=== PATIENT | female | born 1970 | race Caucasian/White ===

== ENCOUNTER → 2022-02-28 | Outpatient (CLI) | payer OTHER ==
--- NOTE | 2022-03-01 07:45 | CT ---
EXAMINATION TYPE: CT abdomen pelvis w con DATE OF EXAM: 02/28/2022 COMPARISON: None HISTORY: DVTRCLI OF LG INT W/O PERF CT DLP: 453.2 mGycm CONTRAST: CT scan of the abdomen and pelvis is performed with Oral Contrast and with IV Contrast, patient injec jyoti with 100ml mL of Isovue 300. FINDINGS: LUNG BASES-: No visible nodule. No infiltrate. LIVER/GB: Calcified gallstones identified. No space occupying hepatic lesion. Biliary tree is of n ormal caliber. PANCREAS: No inflammation. No distinct mass. SPLEEN: No splenic enlargement. No lesion seen. ADRENALS: No nodule. No thickening. KIDNEYS/BLADDER: No hydronephrosis. No nephrolithiasis. 4 cm simple cyst lower pole left kidney. Ur inary bladder grossly unremarkable. BOWEL: There is nonvisualization of the appendix. No inflammatory process identified. Sigmoid diverti culosis without diverticulitis. There is at least moderate fecal stasis. Normal bowel caliber. No i nflammation. GENITAL ORGANS: No gross abnormality. LYMPH NODES: No greater than 1cm abdominal or pelvic lymph nodes are appreciated. AORTA: No significant abnormality. OSSEOUS STRUCTURES: No significant abnormality is seen. OTHER: No significant additional abnormality is seen. IMPRESSION: 1. No acute inflammatory process identified. 2. There is at least moderate fecal stasis seen throughout the colon. 3. Sigmoid diverticulosis without diverticulitis. 4. Cholelithiasis.
== END | disposition home or self-care (01) ==
LOC: RADCTMAIN 18:12
PROVIDERS: ATTEND Surgery Plastic and Reconstructive Surgery
DX: K80.20 Calculus of gallbladder without cholecystitis without obstruction (principal); K57.30 Diverticulosis of large intestine without perforation or abscess without bleeding; K56.41 Fecal impaction
CPT/HCPCS: 74177; Q9967

== ENCOUNTER 2022-03-14 06:24 | Day surgery (SDC) | payer OTHER ==
[2022-03-12 12:07] VITALS: BMI 22.3
[~2022-03-14 06:24] MED LIST: LACTATED RINGERS 1,000 ML IV SCH; LIDOCAINE 1% (10MG/ML) FOR IV START INTRADERMA PRN
[2022-03-14 07:06] VITALS: RESP 16; TEMP 97
--- NOTE | 2022-03-14 07:36 | P.GSHP ---
History of Present Illness H&P Date: 03/14/22 CHIEF COMPLAINT: Colon screen HISTORY OF PRESENT ILLNESS: The patient is a 51-year-old female who presents for colon screen. Lower endoscopy was offered for further evaluation and management. PAST MEDICAL HISTORY: Please see list. PAST SURGICAL HISTORY: Please see list. MEDICATIONS: Please see list. ALLERGIES: Please see list. SOCIAL HISTORY: No illicit drug use FAMILY HISTORY: No reports of Crohn disease or ulcerative colitis. REVIEW OF ORGAN SYSTEMS: CONSTITUTIONAL: No reports of fevers or chills. PHYSICAL EXAM: VITAL SIGNS: Stable GENERAL: Well-developed pleasant in no acute distress. HEENT: No scleral icterus. Extraocular movements grossly intact. Moist buccal mucosa. NECK: Supple without lymphadenopathy. CHEST: Unlabored respirations. Equal bilateral excursions. CARDIOVASCULAR: Regular rate and rhythm. Distal 2+ pulses. ABDOMEN: Soft, nontender, nondistended. MUSCULOSKELETAL: No clubbing, cyanosis, or edema. ASSESSMENT: 1. Colon screen. PLAN: 1. Recommend proceeding with a lower endoscopy Past Medical History Past Medical History: No Reported History Additional Past Medical History / Comment(s): Left rectal pain X2 months. History of Any Multi-Drug Resistant Organisms: None Reported Past Surgical History: Appendectomy, Back Surgery, Bladder Surgery Additional Past Surgical History / Comment(s): Partial hysterectomy with bladder suspension, C6-C7 spinal fusion, hand surgery. Past Anesthesia/Blood Transfusion Reactions: No Reported Reaction Additional Past Anesthesia/Blood Transfusion Reaction / Comment(s): Had difficulty urinating for 2 weeks after partial hysterectomy, had to self cath for 2 weeks post-op. Past Psychological History: No Psychological Hx Reported Smoking Status: Former smoker Past Alcohol Use History: Rare Additional Past Alcohol Use History / Comment(s): Smoked in her 20's. Past Drug Use History: None Reported - Past Family History Mother Family Medical History: No Reported History Medications and Allergies Home Medications Medication Instructions Recorded Confirmed Type Dicyclomine [Bentyl] 20 mg PO BID 03/12/22 03/14/22 History Lactulose 30 ml PO DAILY 03/12/22 03/14/22 History Sennosides/Docusate Sodium [Senna 2 each PO DAILY 03/12/22 03/14/22 History Plus 8.6-50 mg Tablet] Allergies Allergy/AdvReac Type Severity Reaction Status Date / Time No Known Allergies Allergy Verified 03/14/22 06:54 Surgical - Exam Vital Signs Temp Pulse Resp BP Pulse Ox 97.0 F L 86 16 116/71 98 03/14/22 07:00 03/14/22 07:00 03/14/22 07:00 03/14/22 07:00 03/14/22 07:00
[2022-03-14] MEDS ORDERED: PROPOFOL 10 MG/ML 20 ML VIAL IV ONE (07:38)
--- NOTE | 2022-03-14 07:59 | P.PCN ---
Date of Procedure: 03/14/22 Description of Procedure: PREOPERATIVE DIAGNOSIS: Colonoscopy screening. POSTOPERATIVE DIAGNOSIS: Colonoscopy screening. Severe sigmoid diverticulosis OPERATION: Colonoscopy to the cecum, ileocecal valve and appendiceal orifice. SURGEON: Antonella Vaughn MD. ANESTHESIA: MAC. INDICATIONS: The patient is a 51-year-old female who presents for colonoscopy screening. Benefits and risks were described and informed consent was obtained. DESCRIPTION OF PROCEDURE: The patient had undergone Sutab prep. The patient had been brought into the operating room and laid in the left lateral decubitus position. After adequate intravenous sedation, the rectum was examined with 2% lidocaine jelly. No external hemorrhoids were encountered. The rectal tone was within normal limits. No lesions were palpated in the rectal vault. An Olympus colonoscope was advanced until the cecum, ileocecal valve and appendiceal orifice were clearly viewed. The prep was good. Severe sigmoid diverticulosis was encountered. No colonic polyps were found. No evidence of focal colitis was found. Retroflexion of the scope demonstrated grade 1 internal hemorrhoids without active bleeding or inflammation. The colon was desufflated. The patient had tolerated the procedure well. Withdrawal time was over 6 minutes. FINDINGS: Aronchick preparation quality scale 2 (1-5) Internal hemorrhoids, grade 1 No external prolapsed hemorrhoids. No arteriovenous malformations. No adenomatous polyps. No focal colitis. Severe sigmoid diverticulosis with redundancy requiring abdominal pressure RECOMMENDATIONS: Lower endoscopy in 2031 Plan - Discharge Summary Discharge Rx Participant: No New Discharge Prescriptions: Continue Dicyclomine [Bentyl] 20 mg PO BID Sennosides/Docusate Sodium [Senna Plus 8.6-50 mg Tablet] 2 each PO DAILY Lactulose 30 ml PO DAILY Discharge Medication List Dicyclomine [Bentyl] 20 mg PO BID 03/12/22 [History] Lactulose 30 ml PO DAILY 03/12/22 [History] Sennosides/Docusate Sodium [Senna Plus 8.6-50 mg Tablet] 2 each PO DAILY 03/12/22 [History] Follow up Appointment(s)/Referral(s): Antonella Vaughn MD [STAFF PHYSICIAN] - 03/19/22 Patient Instructions/Handouts: Diverticulosis Diet (GEN), Diverticulosis (DC) Activity/Diet/Wound Care/Special Instructions: Repeat colonoscopy in 10 2031 Discharge Disposition: HOME SELF-CARE
[2022-03-14 08:56] VITALS: BP 101/55; PULSE 70
== END 2022-03-14 11:47 | disposition home or self-care (01) ==
LOC: ORWHC2ENDO 06:24
PROVIDERS: ATTEND Surgery Plastic and Reconstructive Surgery
DX: Z12.11 Encounter for screening for malignant neoplasm of colon (principal); K64.0 First degree hemorrhoids; K57.30 Diverticulosis of large intestine without perforation or abscess without bleeding; Z87.891 Personal history of nicotine dependence
CPT/HCPCS: 45378; J2704

== ENCOUNTER → 2022-03-19 | Outpatient (CLI) | payer OTHER ==
--- NOTE | 2022-03-19 13:23 | XR ---
EXAMINATION TYPE: XR chest 2V DATE OF EXAM: 03/19/2022 COMPARISON: NONE HISTORY: Chest pain unspecified. TECHNIQUE: Frontal and lateral views of the chest are obtained. FINDINGS: There is no focal air space opacity, pleural effusion, or pneumothorax seen. The cardiac silhouette size is upper limits of normal. There is dextroconvex scoliosis centered in the mid to low er thoracic spine. IMPRESSION: No acute cardiopulmonary process.
== END | disposition home or self-care (01) ==
LOC: RADXRMAIN 13:00
PROVIDERS: ATTEND Internal Medicine
DX: R07.9 Chest pain, unspecified (principal)
CPT/HCPCS: 71046

== ENCOUNTER → 2022-06-20 | Outpatient (CLI) | payer OTHER ==
--- NOTE | 2022-06-20 16:26 | MR ---
EXAMINATION TYPE: MR brain wo/w con DATE OF EXAM: 06/20/2022 COMPARISON: NONE HISTORY: No prior, headaches, fatigue, memory issues TECHNIQUE: Multiplanar, multisequence images of the brain and brainstem is performed without and with IV contras t, utilizing 6ml mL intravenous Gadavist . FINDINGS: Diffusion weighted images demonstrate no evidence of a recent infarct or other diffusion ab normality. The ventricular system and cisternal spaces are normal in size and appearance. The brain volume is age appropriate. A few tiny scattered foci of T2 hyperintensity are seen throughout the whi te matter bilaterally. Approximately 10-15 lesions are seen predominantly in the right frontal lobe. Lesions are nonspecific in appearance and distribution. T2 Star weighted images show no suspicious in traparenchymal blood product. Midline structures demonstrate normal morphology. The craniocervical junction appears within normal limits. Post contrast images demonstrate no abnormal enhancement. The dural venous sinuses appear pa tent. The visualized sinuses are clear and the globes are intact. Nasal septum is deviated to left of midline. IMPRESSION: Mild to minimal nonspecific white matter changes favor result of altered vascular mechani cs related to product of migraine headaches.
== END | disposition home or self-care (01) ==
LOC: RADMRIMAIN 12:55
PROVIDERS: ATTEND Nurse Practitioner Family
DX: G93.89 Other specified disorders of brain (principal); R20.2 Paresthesia of skin
CPT/HCPCS: 70553; A9585